=== PATIENT | male | born 1930 | race Caucasian/White ===

== ENCOUNTER → 2016-11-12 | Outpatient (CLI) | payer BC ==
[~2016-11-12] MED LIST: ALBUAER2 INH; ATOR10TA82 PO; AUG0.05O4 TD; CARB1TAB94 PO; CETI10CH PO; CLON0.5T20 PO; CLOT1CRE47 TD; ENTA200T PO; FLUT0.0529 NAE; LEVO100T PO; LISI-461 PO; MELO15TA4; MULT-506 PO; MULTCAP94 PO; RASA1TAB PO
[2016-11-12 10:14] LABS: ALT/SGPT 15 U/L (12-78); AST/SGOT 19 U/L (15-37); BLOOD UREA NITROGEN 27 mg/dl (7-18); BUN/CREATININE RATIO 30.4 (10-20); CALCIUM 8.5 mg/dl (8.5-10.1); CARBON DIOXIDE 29 mmol/L (21-32); CHLORIDE 109 mmol/L (98-107); CHOLESTEROL 155 mg/dl (0-200); CREATININE 0.88 mg/dl (0.60-1.40); GLUCOSE 97 mg/dl (70-99); POTASSIUM 4.4 mmol/L (3.5-5.1); SODIUM 144 mmol/L (136-145)
[2016-11-12 10:26] LABS: ALB/GLOB RATIO 1.2 (0.9-2); ALKALINE PHOSPHATASE 62 U/L (45-117); CHOLESTEROL/HDL RATIO 3.2; HDL CHOLESTEROL 48 mg/dl; LDL CHOLESTEROL CALCULATED 86 mg/dl; TRIGLYCERIDES 105 mg/dl (0-150); VERY LOW DENSITY LIPOPROT CALC 21 mg/dl
== END | disposition home or self-care (01) ==
LOC: C.LAB1850 08:25
PROVIDERS: ATTEND Internal Medicine
DX: I10 Essential (primary) hypertension (principal); E78.00 Pure hypercholesterolemia, unspecified; E03.9 Hypothyroidism, unspecified

== ENCOUNTER → 2017-01-20 | Outpatient (CLI) | payer BC ==
[~2017-01-20] MED LIST changes: +OPTIRAY 320 IV PRN
--- NOTE | 2017-01-20 13:04 | DIAGNOSTIC IMAGING REPORT ---
LEFT SHOULDER CT WITH INTRAVENOUS CONTRAST CT DOSE: 631.45 mGy.cm HISTORY: Left shoulder pain. TECHNIQUE: Multiaxial CT images of the left shoulder were performed and reformatted in the sagittal and coronal plane following the the use of intravenous contrast. COMPARISON: None. FINDINGS: No fracture or dislocation within the left shoulder. The left clavicle is intact. Visualized left lung is clear. No left axillary lymphadenopathy. Small intramuscular, within the biceps. No soft tissue fluid collections. No radiopaque foreign bodies. Evaluation of the rotator cuff is near nondiagnostic due to the CT technique. However, no definite evidence for full-thickness rotator cuff tear. Mild cartilage space narrowing at the glenohumeral joint consistent with osteoarthritis. IMPRESSION: 1. No fracture or dislocation within the left shoulder. 2. Evaluation of the rotator cuff is near done diagnostic to the CT technique. However, no definite evidence for full-thickness rotator cuff tear. 3. Mild osteoarthritis at the glenohumeral joint. Electronically signed by: Maxi Diez M.D. 01/20/2017 1:03 PM Dictated Date/Time: 01/20/2017 12:58 PM
== END | disposition home or self-care (01) ==
LOC: C.CTS 12:06
DX: M25.512 Pain in left shoulder (principal); M19.012 Primary osteoarthritis, left shoulder

== ENCOUNTER → 2017-11-23 | Outpatient (CLI) | payer BC ==
[~2017-11-23] MED LIST changes: +CARB25TA14 PO; +CLOTCRE5 TOP; +FLUT0.15 INTNAS; +IBUP-103 PO; +MELO-83; -MELO15TA4; -OPTIRAY 320 IV PRN; +SENNTAB23 PO; +TAMS0.4C38 PO; +VNTHFA/IN INH
[2017-11-23 10:17] LABS: BASO % 0.4 %; BASO ABS # 0.02 K/uL (0-0.2); EOS % 3.1 %; EOS ABS # 0.17 K/uL (0-0.5); HEMATOCRIT 45.9 % (42-52); HEMOGLOBIN 15.5 g/dL (14.0-18.0); LYMPH % 30.3 %; LYMPH ABS # 1.69 K/uL (1.2-3.4); MEAN CELL VOLUME 93.5 fL (80-100); MEAN CORPUSCULAR HEMOGLOBIN 31.6 pg (25-34); MEAN CORPUSCULAR HGB CONC 33.8 g/dl (32-36); MEAN PLATELET VOLUME 10.8 fL (7.4-10.4); MONO % 7.4 %; MONO ABS # 0.41 K/uL (0.11-0.59); NEUT % 58.8 %; NEUT ABS # 3.28 K/uL (1.4-6.5); PLATELET COUNT 166 K/uL (130-400); RED CELL DISTRIBUTION WIDTH CV 12.8 % (11.5-14.5); WHITE BLOOD COUNT 5.57 K/uL (4.8-10.8)
[2017-11-23 10:55] LABS: ALBUMIN 3.6 gm/dl (3.4-5.0); ALT/SGPT 22 U/L (12-78); AST/SGOT 21 U/L (15-37); BLOOD UREA NITROGEN 27 mg/dl (7-18); CALCIUM 8.4 mg/dl (8.5-10.1); CARBON DIOXIDE 28 mmol/L (21-32); CHOLESTEROL 154 mg/dl (0-200); GLUCOSE 92 mg/dl (70-99); SODIUM 140 mmol/L (136-145)
[2017-11-23 11:06] LABS: ALKALINE PHOSPHATASE 50 U/L (45-117); LDL CHOLESTEROL CALCULATED 79 mg/dl; TOTAL PROTEIN 6.8 gm/dl (6.4-8.2)
== END | disposition home or self-care (01) ==
LOC: C.LAB1850 09:29
PROVIDERS: ATTEND Internal Medicine
DX: E78.00 Pure hypercholesterolemia, unspecified (principal); E03.9 Hypothyroidism, unspecified; G20 Parkinson's disease; I10 Essential (primary) hypertension

== ENCOUNTER → 2017-12-01 | Outpatient (CLI) | payer BC ==
[~2017-12-01] MED LIST changes: -ALBUAER2 INH; -AUG0.05O4 TD; -CARB1TAB94 PO; -CLOT1CRE47 TD; -FLUT0.0529 NAE; -MELO-83
--- NOTE | 2017-12-01 08:03 | DIAGNOSTIC IMAGING REPORT ---
(CHEST) THORAX WITHOUT CT DOSE: 638.48 mGy.cm HISTORY: Preoperative PRE OP TESTING TECHNIQUE: Multiaxial CT images of the chest were performed without contrast. A dose lowering technique was utilized adhering to the principles of ALARA. COMPARISON: Chest 11/29/2017 FINDINGS: Lungs in general are clear bilaterally. There is mild peripheral pleural reactive change right base with a mild fibrocalcific change. These findings appear to be chronic and most likely postinflammatory. No significant parenchymal nodularity or acute infiltrates appreciated. He had a mediastinal regions show no significant evans pathology. Note is made of several small gallstones as well as a cyst upper pole right kidney. IMPRESSION: Chronic/benign pleural reactive change right lung base accounting for the chest film findings. No acute process. The above report was generated using voice recognition software. It may contain grammatical, syntax or spelling errors. Electronically signed by: Mickey Fisher M.D. 12/01/2017 8:01 AM Dictated Date/Time: 12/01/2017 7:57 AM
== END | disposition home or self-care (01) ==
LOC: C.CTS 07:43
DX: Z01.818 Encounter for other preprocedural examination (principal)

== ENCOUNTER 2017-12-09 10:13 | Inpatient (IN) | payer BC, OTHER ==
[2017-11-29 10:44] VITALS: Ht 177.8 cm; Wt 103.6 kg
--- NOTE | 2017-11-29 11:29 | PAT Medication Instructions ---
Service Date Nov 29, 2017. Current Home Medication List Albuterol Hfa (Ventolin Hfa), 2 PUFFS INH Q6H PRN for PRN Atorvastatin (Lipitor), 1 TAB PO QPM Carbidopa (Carbidopa), 2 MG PO TID Carbidopa/Levodopa (Sinemet 25MG/250MG), 1 TAB PO QID Cetirizine Hcl (Cetirizine Hcl), 1 TAB PO QPM Clonazepam (Clonazepam Odt), 0.5 MG PO HS Clotrimazole (Topical) (Clotrimazole Anti-Fungal), 1 DOSE TOP PRN Entacapone (Comtan), 200 MG PO QID Fluticasone Propionate (Nasal) (Flonase Allergy Relief), 2 SPRAYS INTNAS QAM Ibuprofen Tab (Advil), 600 MG PO BID Levothyroxine Sodium (Synthroid), 1 TAB PO QAM Lisinopril (Lisinopril), 1 TAB PO QAM Multiple Vitamins W/ Minerals (Ocuvite Adult 50+), 1 CAP PO NOON Multivitamin (Multivitamin), 1 TAB PO QAM Rasagiline Mesylate (Azilect), 1 MG PO QAM Sennosides-Docusate Sodium (Stool Softener), 1 TAB PO NOON Tamsulosin Hcl (Flomax), 0.8 MG PO QPM Medication Instructions For Your Scheduled Surgery - Hold the following medications 2 weeks prior to surgery: Rasagiline Mesylate (Azilect), 1 MG PO QAM Ibuprofen Tab (Advil), 600 MG PO BID (per surgeon) - Hold the following medications 24 hours prior to surgery: Clotrimazole (Topical) (Clotrimazole Anti-Fungal), 1 DOSE TOP PRN - Hold the following medications the morning of surgery: Lisinopril (Lisinopril), 1 TAB PO QAM Multiple Vitamins W/ Minerals (Ocuvite Adult 50+), 1 CAP PO NOON Multivitamin (Multivitamin), 1 TAB PO QAM - Take the following medications the morning of surgery with a sip of water: Albuterol Hfa (Ventolin Hfa), 2 PUFFS INH Q6H PRN for PRN (if needed) Carbidopa (Carbidopa), 2 MG PO TID Carbidopa/Levodopa (Sinemet 25MG/250MG), 1 TAB PO QID Entacapone (Comtan), 200 MG PO QID Fluticasone Propionate (Nasal) (Flonase Allergy Relief), 2 SPRAYS INTNAS QAM Levothyroxine Sodium (Synthroid), 1 TAB PO QAM - Take the following medications as scheduled the night before surgery: Albuterol Hfa (Ventolin Hfa), 2 PUFFS INH Q6H PRN for PRN (if needed) Atorvastatin (Lipitor), 1 TAB PO QPM Carbidopa (Carbidopa), 2 MG PO TID Carbidopa/Levodopa (Sinemet 25MG/250MG), 1 TAB PO QID Cetirizine Hcl (Cetirizine Hcl), 1 TAB PO QPM Clonazepam (Clonazepam Odt), 0.5 MG PO HS Entacapone (Comtan), 200 MG PO QID Sennosides-Docusate Sodium (Stool Softener), 1 TAB PO NOON Tamsulosin Hcl (Flomax), 0.8 MG PO QPM If you have any questions please call us at [phone] or [phone] or [phone]
[2017-11-29 13:00] LABS: HEMOGLOBIN A1C 5.3 % (4.5-5.6)
[2017-11-29 13:02] LABS: PTT PATIENT 29.6 SECONDS (21.0-31.0)
--- NOTE | 2017-11-29 13:20 | DIAGNOSTIC IMAGING REPORT ---
TWO VIEW CHEST CLINICAL HISTORY: Preoperative examination. FINDINGS: PA and lateral chest radiographs are compared to study dated 06/06/2013. The heart is enlarged and there is atherosclerotic calcification of the thoracic aorta. The pulmonary vasculature is noncongested. There is elevation right hemidiaphragm. There are atelectasis versus scarring is present lower lobes. There is asymmetric density identified at the right apex. There is no pneumothorax. The skeletal structures are osteopenic. Degenerative change is noted in the thoracic spine and shoulders. IMPRESSION: 1. Cardiomegaly with no active disease in the chest. 2. There is asymmetric density present at the right apex. This may be related to osseous structures; however, a CT scan of the chest is recommended for further assessment and to exclude mass lesion. Electronically signed by: Keith Quiñones M.D. 11/29/2017 1:19 PM Dictated Date/Time: 11/29/2017 12:58 PM
--- NOTE | 2017-12-08 12:10 | HISTORY & PHYSICAL EXAMINATION ---
DATE OF ADMISSION: 12/09/2017 CHIEF COMPLAINT: Left knee pain. HISTORY OF PRESENT ILLNESS: The patient is an 87-year-old gentleman with known left knee osteoarthritis. He has had previous conservative care including corticosteroid injections and more recently a series of viscosupplementation injections. These recent injections did not help him at all. He had a previous right total knee arthroplasty which has done well. Due to ongoing pain and disability, he now desires to proceed with left total knee arthroplasty. PAST MEDICAL HISTORY: Hypertension, hypercholesterolemia, Parkinson's disease, hypothyroidism, osteoarthritis, skin cancer, enlarged prostate. PAST SURGICAL HISTORY: Right knee replacement as above, ear surgery, appendectomy, hernia repair, Mohs surgery. MEDICATIONS: Lipitor 10 mg daily, Ginger 180 mg daily, Flonase 1 spray each nostril daily, lisinopril 10 mg daily, carbidopa-levodopa 25-100 3 times daily, clobetasol topical cream 0.05% applied 2 times daily as needed, Levoxyl 50 mcg daily, Ventolin inhaler 2 puffs q. 4-6 hours p.r.n., multivitamin daily, Azilect 1 mg daily, clonazepam 0.5 mg daily, Meloxicam 15 mg daily. ALLERGIES: LATEX, POLYMYXIN B, BACITRACIN, SULFA, NEOMYCIN, PRESERVATIVES, AND EAR AND EYEDROPS. SOCIAL HISTORY AND REVIEW OF SYSTEMS: Noncontributory. PHYSICAL EXAMINATION: GENERAL: Well-nourished, well-developed elderly male who appears his stated age. HEENT: Normocephalic, atraumatic, extraocular movements intact, oropharynx pink and moist. NECK: Supple without adenopathy. LUNGS: Clear to auscultation bilaterally. HEART: Regular rate and rhythm. ABDOMEN: Soft, nontender, nondistended. EXTREMITIES: He demonstrates a pill rolling tremor in the upper extremity consistent with his Parkinson's disease. The left knee has a varus alignment. His range of motion is from 0-120 degrees. He complains primarily of medial compartment pain. X-RAYS: X-rays were reviewed. He has a varus aligned knee. He has [id number] arthritis of the medial compartment with complete loss of the joint space. There is medial osteophytes. He has osteophytes about the patellofemoral joint as well. ASSESSMENT: Left knee degenerative joint disease. PLAN: Risks versus benefits were discussed, consent was obtained. The patient's primary care physician is Dr. Barnard. Will proceed with left total knee arthroplasty as indicated.
[~2017-12-09] VITALS: Ht 177.8 cm; Wt 103.6 kg
[2017-12-09] VITALS (9 sets, daily range): BP systolic 114–154; BP diastolic 61–87; PULSE 78–107; TEMP 36.6–37.2; O2SAT 93–96
--- NOTE | 2017-12-09 07:14 | History & Physical Bridge Note ---
H&P Re-Evaluation Bridge Note: I have examined the patient, reviewed the History & Physical and in the interval since the performance of the History & Physical I have noted the following changes of clinical significance: No changes noted
[~2017-12-09 10:13] MED LIST changes: +ACETAMINOPHEN 500 MG TAB PO SCH; +CEFAZOLIN 2000MG IV PUSH 15 ML IV SCH; +CeleBREX 200 MG CAP PO SCH; +DEXAMETHASONE 4 MG TAB PO SCH; +FAMOTIDINE 20 MG TAB PO SCH; +GABAPENTIN 300 MG CAP PO SCH; +LACTATED RINGER'S 1000ML 1,000 ML IV SCH; +LACTATED RINGER'S 1000ML 500 ML IV SCH; +METOCLOPRAMIDE HCL 10 MG TAB PO SCH; +ROPIVACAINE 5MG/ML 30 ML 150 MG, BUPIVACAINE 0.5% MPF INJ 30 ML, EpINEphrine HCL INJ 0.... INFIL SCH
[2017-12-09] MEDS ORDERED: MIDAZOLAM HCL 1 MG/ML 2ML VIAL ONE (10:24)
[2017-12-09] MEDS ORDERED: FENTANYL CITRATE INJ 50 MCG/1 ML 2 ML VIAL ONE (10:24)
[2017-12-09] MEDS ORDERED: ROPIVACAINE 0.5% 5 MG/ML 30 ML VIAL ONE (11:50)
[2017-12-09] MEDS ORDERED: BUPIVACAINE 0.5 % 5 MG/1 ML PF 10ML VIAL ONE (11:50)
[2017-12-09] MEDS ORDERED: EpINEphrine INJ 1MG/ML AMP 1 MG/ML AMP ONE (11:51)
[2017-12-09] MEDS ORDERED: ORTHO JOINT ANESTHETIC ONE (12:00)
[2017-12-09] MEDS ORDERED: POVIDONE-IODINE OP SOLN 30 ML BTL ONE (12:00)
[2017-12-09] MEDS ORDERED: BACITRACIN 50000 UNIT VIAL ONE (12:00)
[2017-12-09] MEDS ORDERED: LABETALOL HCL IV 5 MG/ML 20ML IV PRN (12:15)
[2017-12-09] MEDS ORDERED: EpHEDrine SULFATE INJ 50 MG/ML AMP IV PRN (12:15)
[2017-12-09] MEDS ORDERED: MEPERIDINE HCL 25 MG/ML CARP IV PRN (12:15)
[2017-12-09] MEDS ORDERED: FENTANYL CITRATE INJ 50 MCG/1 ML 2 ML VIAL IV PRN (12:15)
[2017-12-09] MEDS ORDERED: PHENYLEPHRINE 100MCG/ML 5ML SYR IV PRN (12:15)
[2017-12-09] MEDS ORDERED: ATROPINE SULFATE 0.1 MG/ML 5ML SYR IV PRN (12:15)
[2017-12-09] MEDS ORDERED: ONDANSETRON INJ 2 MG/ML 2 ML VIAL IV PRN ×2 (12:15→14:15)
[2017-12-09] MEDS ORDERED: HYDROmorphone INJ 2 MG/ML SYR/VIAL IV PRN (12:15)
[2017-12-09] MEDS ORDERED: FLUMAZENIL 0.1 MG/1 ML 10 ML VIAL IV PRN (12:15)
[2017-12-09] MEDS ORDERED: NALOXONE HCL 0.4 MG/1 ML VIAL/CARP IV PRN (12:15)
[2017-12-09] MEDS ORDERED: BISACODYL 10 MG SUPP PR PRN (14:15)
[2017-12-09] MEDS ORDERED: MAGNESIUM HYDROXIDE SUSP 30 ML UDC PO PRN (14:15)
[2017-12-09] MEDS ORDERED: MoRPHine SULFATE 4 MG/ML 1 ML CARP\\VIAL IV PRN (14:15)
[2017-12-09] MEDS ORDERED: ALUMINUM/MAGNESIUM/SIMETH (MAALOX MAX) 30 ML UDC PO PRN (14:15)
[2017-12-09] MEDS ORDERED: ALBUTEROL HFA 8 GM INHALER INH PRN (14:15)
--- NOTE | 2017-12-09 14:42 | DIAGNOSTIC IMAGING REPORT ---
L KNEE 2 VIEWS ROUTINE CLINICAL HISTORY: Osteoarthritis. Postoperative study. COMPARISON: None. DISCUSSION: There are postsurgical changes of a total left knee arthroplasty and patellar resurfacing. The femoral tibial components appear well seated. Overlying skin aida and surgical drains are evident. There is air within the soft tissues consistent with recent surgery. There is asymmetry in the medial and lateral joint compartment prosthetic distances. IMPRESSION: Postsurgical changes of a total left knee arthroplasty. Electronically signed by: Tristian Cortés M.D. 12/09/2017 2:41 PM Dictated Date/Time: 12/09/2017 2:38 PM
[2017-12-09] MEDS: D5W AND 1/2NSS + 20MEQ KCL 1,000 ML IV SCH (16:53)
--- NOTE | 2017-12-09 16:54 | Anesthesiology Progress Note ---
Anesthesia Post Op Note Date & Time December 09, 2017 at 16:54 Vital Signs Pain Intensity: 0 Vital Signs Past 12 Hours Date Time Temp Pulse Resp B/P (MAP) Pulse Ox O2 Delivery O2 Flow Rate FiO2 12/09/17 16:25 36.7 85 17 152/81 (104) 95 Nasal Cannula 2.0 12/09/17 15:55 95 Nasal Cannula 2.0 12/09/17 15:55 95 Nasal Cannula 2.0 12/09/17 15:52 37.1 88 16 134/71 (92) Nasal Cannula 2.0 12/09/17 15:40 37.2 89 18 129/73 94 Nasal Cannula 2 12/09/17 15:30 37.2 91 16 122/73 94 Nasal Cannula 2 12/09/17 15:20 37.2 92 16 126/76 94 Nasal Cannula 2 12/09/17 15:10 37.2 89 20 138/80 95 Nasal Cannula 2 12/09/17 15:00 89 20 132/69 94 Nasal Cannula 2 12/09/17 14:50 90 14 137/69 95 Nasal Cannula 2 12/09/17 14:40 89 14 130/69 96 Nasal Cannula 2 12/09/17 14:30 1 14 131/78 97 Nasal Cannula 2 12/09/17 14:20 90 14 134/73 98 Nasal Cannula 2 12/09/17 14:14 36.9 90 10 130/80 96 Oxymask 10 12/09/17 11:06 36.8 87 20 117/73 96 Room Air Notes Mental Status: alert / awake / arousable, participated in evaluation Pt Amnestic to Procedure: Yes Nausea / Vomiting: adequately controlled Pain: adequately controlled Airway Patency, RR, SpO2: stable & adequate BP & HR: stable & adequate Hydration State: stable & adequate Neuraxial Anesthesia: was administered, sensory block is resolving Anesthetic Complications: no major complications apparent
[2017-12-09] MEDS: TRANEXAMIC ACID INJ 1,000 MG x 2 Bags IV SCH ×4 (17:01→17:06)
[2017-12-09] MEDS: ENTACAPONE 200 MG TAB PO SCH ×2 (17:03→20:46)
[2017-12-09] MEDS: CARBIDOPA/LEVODOPA 25-250 1 EA TAB PO SCH ×2 (17:03→20:45)
[2017-12-09] MEDS: FERROUS GLUCONATE 324 MG TAB PO SCH (17:29)
[2017-12-09] MEDS: CEFAZOLIN IV 2,000 MG in SYRINGE 0 ML IV SCH (19:38)
[2017-12-09] MEDS: OXYCODONE HCL IR 5 MG TAB (IMMEDIATE RELEASE) PO PRN (19:39)
[2017-12-09] MEDS: DOCUSATE SODIUM 100 MG CAP PO SCH (20:45)
[2017-12-09] MEDS: SENNA 8.6 MG TAB PO SCH (20:45)
[2017-12-09] MEDS: ATORVASTATIN 10 MG TAB PO SCH (20:46)
[2017-12-09] MEDS: TAMSULOSIN HCL 0.4 MG CAP PO SCH (20:46)
[2017-12-09] MEDS: CETIRIZINE HCL 10 MG TAB PO SCH (20:46)
[2017-12-09] MEDS: CLONAZEPAM 0.5 MG TAB PO SCH (20:46)
[2017-12-09] MEDS: ASPIRIN 81 MG ECTAB PO SCH (20:47)
[2017-12-09] MEDS: ACETAMINOPHEN 500 MG TAB PO SCH (21:31)
[2017-12-10] MEDS: OXYCODONE HCL IR 5 MG TAB (IMMEDIATE RELEASE) PO PRN ×3 (00:18→16:14)
[2017-12-10] MEDS: D5W AND 1/2NSS + 20MEQ KCL 1,000 ML IV SCH ×2 (02:12→12:07)
[2017-12-10 03:12] VITALS: BP 122/65; PULSE 76; TEMP 36.6; O2SAT 95
[2017-12-10] MEDS: CEFAZOLIN IV 2,000 MG in SYRINGE 0 ML IV SCH (03:21)
[2017-12-10] MEDS: TRAMADOL HCL 50 MG TAB PO PRN ×4 (03:21→15:16)
[2017-12-10] MEDS: ACETAMINOPHEN 500 MG TAB PO SCH ×3 (05:45→22:00)
[2017-12-10] MEDS: LEVOTHYROXINE 100 MCG TAB PO SCH (05:45)
[2017-12-10 06:28] LABS: HEMATOCRIT 38.2 % (42-52); HEMOGLOBIN 12.9 g/dL (14.0-18.0); MEAN CORPUSCULAR HEMOGLOBIN 31.1 pg (25-34); MEAN CORPUSCULAR HGB CONC 33.8 g/dl (32-36); MEAN PLATELET VOLUME 10.7 fL (7.4-10.4); PLATELET COUNT 144 K/uL (130-400); RED CELL DISTRIBUTION WIDTH CV 12.6 % (11.5-14.5); RED CELL DISTRIBUTION WIDTH SD 42.7 fL (36.4-46.3); WHITE BLOOD COUNT 14.96 K/uL (4.8-10.8)
[2017-12-10 07:09] LABS: CALCIUM 7.8 mg/dl (8.5-10.1); CREATININE 1.02 mg/dl (0.60-1.40); POTASSIUM 4.8 mmol/L (3.5-5.1)
[2017-12-10 07:19] VITALS: BP 124/74; PULSE 77; TEMP 36.5; O2SAT 98
--- NOTE | 2017-12-10 07:41 | Anesthesiology Progress Note ---
Anesthesia Post Op Note Date & Time December 10, 2017 at 07:40 Vital Signs Pain Intensity: 6.0 Vital Signs Past 12 Hours Date Time Temp Pulse Resp B/P (MAP) Pulse Ox O2 Delivery O2 Flow Rate FiO2 12/10/17 07:19 36.5 77 16 124/74 (91) 98 2.0 12/10/17 03:12 36.6 76 16 122/65 (84) 95 Nasal Cannula 2.0 12/10/17 00:00 Nasal Cannula 2.0 12/09/17 22:54 36.6 78 16 114/64 (81) 94 Nasal Cannula 2.0 Notes Mental Status: alert / awake / arousable, participated in evaluation Pt Amnestic to Procedure: Yes Nausea / Vomiting: adequately controlled Pain: adequately controlled Airway Patency, RR, SpO2: stable & adequate BP & HR: stable & adequate Hydration State: stable & adequate Neuraxial Anesthesia: sensory block resolved Anesthetic Complications: no major complications apparent
--- NOTE | 2017-12-10 07:43 | Orthopedic Progress Note ---
Orthopedic Progress Note Date of Service December 10, 2017. Subjective Post OP Day: 1 Reports: feeling well Objective N/V intact, dressing C/D/I (Hemovac in place), toes mobile Date Time Temp Pulse Resp B/P (MAP) Pulse Ox O2 Delivery O2 Flow Rate FiO2 12/10/17 07:19 36.5 77 16 124/74 (91) 98 2.0 12/10/17 03:12 36.6 76 16 122/65 (84) 95 Nasal Cannula 2.0 12/10/17 00:00 Nasal Cannula 2.0 12/09/17 22:54 36.6 78 16 114/64 (81) 94 Nasal Cannula 2.0 12/09/17 19:10 37.2 91 17 148/61 (90) 94 Room Air 12/09/17 17:50 37.2 107 16 154/87 (109) 93 Nasal Cannula 2.0 12/09/17 17:20 95 Nasal Cannula 2.0 12/09/17 17:00 37.1 88 16 141/80 (100) 95 Nasal Cannula 2.0 12/09/17 16:25 36.7 85 17 152/81 (104) 95 Nasal Cannula 2.0 12/09/17 15:55 95 Nasal Cannula 2.0 12/09/17 15:55 95 Nasal Cannula 2.0 12/09/17 15:52 37.1 88 16 134/71 (92) Nasal Cannula 2.0 12/09/17 15:40 37.2 89 18 129/73 94 Nasal Cannula 2 12/09/17 15:30 37.2 91 16 122/73 94 Nasal Cannula 2 12/09/17 15:20 37.2 92 16 126/76 94 Nasal Cannula 2 12/09/17 15:10 37.2 89 20 138/80 95 Nasal Cannula 2 12/09/17 15:00 89 20 132/69 94 Nasal Cannula 2 12/09/17 14:50 90 14 137/69 95 Nasal Cannula 2 12/09/17 14:40 89 14 130/69 96 Nasal Cannula 2 12/09/17 14:30 1 14 131/78 97 Nasal Cannula 2 12/09/17 14:20 90 14 134/73 98 Nasal Cannula 2 12/09/17 14:14 36.9 90 10 130/80 96 Oxymask 10 12/09/17 11:06 36.8 87 20 117/73 96 Room Air Laboratory Results 24 Hours: Test 12/10/17 05:34 Hematocrit 38.2 % Hemoglobin 12.9 g/dL Assessment & Plan Assessment: 87 yo male stable POD #1 s/p left TKA Plan: 1. Med management 2. DVT prophylaxis- ASA, SCDs 3. PT/OT 4. D/C planning- home w/ HH
--- NOTE | 2017-12-10 07:44 | Discharge Instructions ---
Discharge Instructions Date of Service December 10, 2017. Admission Reason for Admission: Left Knee Osteoarthritis Discharge Discharge Diagnosis / Problem: Left knee arthritis Discharge Goals Goal(s): Decrease discomfort, Improve function Activity Recommendations Activity Limitations: as noted below Weightbearing Status: Left weightbearing (as tolerated) . Instructions / Follow-Up Instructions / Follow-Up ACTIVITY RECOMMENDATIONS: SELF CARE INSTRUCTIONS AFTER TOTAL KNEE REPLACEMENT A. You may need to continue a physical therapy program after discharge from the hospital. There are several options available to you. Your doctor will assist you in selecting the best one for you. 1. An out-patient facility 2 to 3 times a week for therapy or home therapy. 2. Continue working on all exercises taught to you in the hospital. Your goals should be to increase bending of your knee to 90 degrees and beyond and to fully straighten your knee. B. You may progress at your own pace from walking with a walker or crutches to a cane; then to no assistive devices. C. Make walking a part of your daily routine. Be up as much as comfortable with rest periods throughout the day. Rest with leg elevation is very important. Use the ice wrap frequently for the first 3-4 weeks. D. There are no restrictions on activities. You may ride in a car, shop, participate in model and mold maker plaster and all social activities. E. Wear the long elastic stockings (RODDY hose) 20 hours a day for 2 weeks after surgery. They can be removed several times a day for laundering and for a bath. F. You may shower, no tub baths until cleared by your doctor. SPECIAL CARE INSTRUCTIONS: VERY IMPORTANT TO READ AND REVIEW A. There are a few signs you need to watch for after you are home. Call [facility] if you notice any of the followin. Increased severe knee pain. Some pain is expected especially when you exercise. 2. Increased swelling in your leg or knee; pain or swelling of the calf muscle in either lower leg. 3. Any fluid drainage from the incision. 4. Shortness of breath or chest pain. B. Please call [facility] at if you have any concerns or questions about your operation or recovery. The doctor or his nurse will return your call promptly. C. You must take antibiotics before dental work, bladder, bowel or other surgery. Your doctor will provide you with a permanent care to carry describing this precaution. IMPORTANT: * REMEMBER TO TAKE ASPIRIN, 81 MG, TWICE DAILY FOR 4 WEEKS UNLESS OTHERWISE DIRECTED. THIS IS YOUR BLOOD THINNER. * HIGH RISK PATIENTS MAY BE PRESCRIBED A STRONGER BLOOD THINNER. THIS WILL BE PROVIDED AT DISCHARGE. * CALL IF INCREASED PAIN, REDNESS, DRAINAGE OR FEVER GREATER THAT 101. * WEAR RODDY HOSE 20 HOURS PER DAY FOR 2 WEEKS. FOLLOW UP VISIT: If appointment is not already scheduled: Please call [facility] to make a follow-up appointment for 2 weeks after your surgery at . Current Hospital Diet Patient's current hospital diet: AHA Diet (Heart Healthy) Discharge Diet Recommended Diet: AHA Diet (Heart Healthy) Procedures Procedures Performed: Left total knee arthroplasty Pending Studies Studies pending at discharge: no Laboratory Results Hemoglobin A1c Test 11/29/17 11:41 Range/Units Estimated Average Glucose 105 mg/dl Hemoglobin A1c 5.3 4.5-5.6 % Lipid Panel Test 11/23/17 09:31 Range/Units Triglycerides Level 141 0-150 mg/dl Cholesterol Level 154 0-200 mg/dl HDL Cholesterol 47 mg/dl Cholesterol/HDL Ratio 3.3 LDL Cholesterol, Calculated 79 mg/dl Medical Emergencies . Who to Call and When: Medical Emergencies: If at any time you feel your situation is an emergency, please call 911 immediately. . Non-Emergent Contact Non-Emergency issues call your: Surgeon Call Non-Emergent contact if: temperature is above 101.5, your pain is not controlled, wound has increased drainage, wound has increased redness . "Provider Documentation" section prepared by Jose Benjamin PA-C. . [place] Drug Monitoring Program Search Results: patient reviewed within database, no issues identified
[2017-12-10] MEDS: ENTACAPONE 200 MG TAB PO SCH ×4 (08:06→20:33)
[2017-12-10] MEDS: CARBIDOPA/LEVODOPA 25-250 1 EA TAB PO SCH ×4 (08:08→20:33)
[2017-12-10] MEDS: FLUTICASONE PROPIONATE NA SPR 16 GM BTL SCH (08:45)
[2017-12-10] MEDS: FERROUS GLUCONATE 324 MG TAB PO SCH ×3 (08:45→17:26)
[2017-12-10] MEDS: ASPIRIN 81 MG ECTAB PO SCH ×2 (08:46→20:33)
[2017-12-10] MEDS: DOCUSATE SODIUM 100 MG CAP PO SCH ×2 (08:46→20:32)
[2017-12-10] MEDS: LISINOPRIL 10 MG TAB PO SCH (08:47)
[2017-12-10] MEDS ORDERED: MULTIVITAMIN TAB PO SCH (09:00)
[2017-12-10 10:57] VITALS: BP 146/76; PULSE 81; TEMP 36.5; O2SAT 92
[2017-12-10] MEDS: CEROVITE ADV FORMULA TAB PO SCH (12:08)
[2017-12-10] MEDS: RASAGILINE MESYLATE 1 MG TAB PO SCH (12:09)
[2017-12-10 15:40] VITALS: BP 135/69; PULSE 83; TEMP 37.1; O2SAT 92
[2017-12-10] MEDS: CETIRIZINE HCL 10 MG TAB PO SCH (20:32)
[2017-12-10] MEDS: ATORVASTATIN 10 MG TAB PO SCH (20:32)
[2017-12-10] MEDS: SENNA 8.6 MG TAB PO SCH (20:33)
[2017-12-10] MEDS: TAMSULOSIN HCL 0.4 MG CAP PO SCH (20:33)
[2017-12-10] MEDS: CLONAZEPAM 0.5 MG TAB PO SCH (20:33)
[2017-12-10 22:42] VITALS: BP 104/58; PULSE 107; TEMP 36.7; O2SAT 92
[2017-12-11] MEDS: OXYCODONE HCL IR 5 MG TAB (IMMEDIATE RELEASE) PO PRN ×2 (04:28→08:32)
[2017-12-11] MEDS: LEVOTHYROXINE 100 MCG TAB PO SCH (05:53)
[2017-12-11] MEDS: ACETAMINOPHEN 500 MG TAB PO SCH (05:53)
[2017-12-11 06:49] VITALS: BP 111/60; PULSE 116; TEMP 37.9; O2SAT 91
[2017-12-11 06:50] VITALS: TEMP 37.1
[2017-12-11] MEDS: LISINOPRIL 10 MG TAB PO SCH (07:52)
[2017-12-11] MEDS: ASPIRIN 81 MG ECTAB PO SCH (07:52)
[2017-12-11] MEDS: FERROUS GLUCONATE 324 MG TAB PO SCH (07:52)
[2017-12-11] MEDS: FLUTICASONE PROPIONATE NA SPR 16 GM BTL SCH (07:52)
[2017-12-11] MEDS: RASAGILINE MESYLATE 1 MG TAB PO SCH (07:52)
[2017-12-11] MEDS: CARBIDOPA/LEVODOPA 25-250 1 EA TAB PO SCH (07:52)
[2017-12-11] MEDS: DOCUSATE SODIUM 100 MG CAP PO SCH (07:52)
[2017-12-11] MEDS: ENTACAPONE 200 MG TAB PO SCH (07:52)
[2017-12-11] MEDS: CEROVITE ADV FORMULA TAB PO SCH (07:52)
--- NOTE | 2017-12-11 09:03 | Orthopedic Progress Note ---
Orthopedic Progress Note Date of Service December 11, 2017. Subjective Post OP Day: 2 Reports: feeling well Objective calves soft nontender, N/V intact, dressing C/D/I, toes mobile Date Time Temp Pulse Resp B/P (MAP) Pulse Ox O2 Delivery O2 Flow Rate FiO2 12/11/17 08:58 Room Air 12/11/17 06:50 37.1 12/11/17 06:49 37.9 116 16 111/60 (77) 91 Room Air 12/11/17 00:45 Room Air 12/10/17 22:42 36.7 107 16 104/58 (73) 92 Room Air 12/10/17 15:40 37.1 83 18 135/69 (91) 92 Room Air 12/10/17 15:26 Room Air 12/10/17 10:57 36.5 81 16 146/76 (99) 92 Room Air Assessment & Plan Assessment: 87 yo male stable POD #2 s/p left TKA Plan: 1. Med management 2. DVT prophylaxis- ASA, SCDs 3. PT/OT 4. D/C planning- home w/ HH
[2017-12-11] MEDS ORDERED: ULT50X PO (09:05)
[2017-12-11] MEDS ORDERED: ASPI-320 PO (09:05)
[2017-12-11] MEDS ORDERED: ACET-24 PO (09:05)
[2017-12-11] MEDS ORDERED: RXC5 PO (09:05)
[2017-12-11 09:43] VITALS: BP 111/60; PULSE 116; TEMP 37.1; O2SAT 91
--- NOTE | 2017-12-14 16:28 | DISCHARGE SUMMARY ---
DISCHARGE DIAGNOSIS: Degenerative joint disease, left knee. SECONDARY DIAGNOSES: Hypertension, hypercholesterolemia, Parkinson's disease, hypothyroidism, osteoarthritis, skin carcinoma, enlarged prostate. CONSULTS: None. COMPLICATIONS: None. PROCEDURES: Left total knee arthroplasty performed by Dr. Castro on 12/09/2017. BRIEF HISTORY: As dictated in history and physical. HOSPITAL SUMMARY: The patient was admitted on the above-noted date and had the above-noted surgery performed which he tolerated well. On the first postoperative day he was feeling well. Neurovascularly intact. Dressings clean, dry and intact. Toes are mobile. Vital signs were stable. He was afebrile. Hemoglobin was 12.9. Patient was started on physical therapy protocol and continued on DVT prophylaxis and pain management. By his second postoperative day, he was feeling well. Calves were soft, nontender, neurovascularly intact. Toes were mobile. Dressing was intact. Vital signs were stable. He was afebrile. He was progressing with his physical therapy and it was felt he could be discharged home with home health services on 12/11/2017. For further review, please see chart. LAB AND X-RAY DATA: As per chart. DISCHARGE INSTRUCTIONS: The patient was discharged to home in satisfactory condition on 12/11/2017. DIET: Heart healthy. ACTIVITY: Weightbearing as tolerated left lower extremity. Follow TKA instruction sheets and special care instructions as noted. Follow up with Dr. Castro in 2 weeks. The patient to call for appointment if one has not been made for you. DISCHARGE MEDICATIONS: Acetaminophen 1000 mg p.o. q. 8 hours for 14 days, aspirin 81 mg p.o. b.i.d. for 28 days, oxycodone 5-10 mg p.o. q. 4 hours p.r.n., tramadol 50-100 mg p.o. q. 4 hours p.r.n., resume home meds as listed and stop taking ibuprofen.
--- NOTE | 2017-12-15 15:19 | OPERATIVE REPORT ---
DATE OF OPERATION: 12/09/2017 PREOPERATIVE DIAGNOSIS: Osteoarthritis, left knee. POSTOPERATIVE DIAGNOSIS: Osteoarthritis, left knee. PROCEDURE: Left total knee arthroplasty. SURGEON: Gamaliel Castro MD MODEL AND MOLD MAKER: Jose Benjamin PA-C ANESTHESIA: Spinal. COMPLICATIONS: None. IMPLANTS USED: Femoral size 6 left, tibia size 5, tibial poly 9, patella size 39. DISPOSITION: Recovery room, stable. OPERATION AND FINDINGS: Following induction of spinal anesthesia, the patient's left leg was prepped and draped in the usual sterile manner. Limb was exsanguinated with an Esmarch bandage and tourniquet was inflated to 350 mmHg. A longitudinal incision was made anteriorly. Subcutaneous tissue was sharply dissected. Electrocautery was used for hemostasis. Prepatellar bursa was incised and median parapatellar incision was performed. Patella was everted and the knee was flexed. Fat pad was removed to aid in visualization and the anterior and posterior cruciate ligaments were removed. The medial face of the tibia was cleared of soft tissue first with a Bovie and a Rubio elevator. This tissue was retracted posteriorly using a blunt Hohmann. A Jorge retractor was used to expose the synovium above on the anterior aspect of the femur and this was removed down to bone. The PSI guide was placed on the distal femur and two pins were placed anteriorly and kept in position and two additional pins were placed distally and removed. The distal femoral cutting block was placed in position and the distal femoral cut was used in the +0 setting. Next, the cutting block was removed and the femoral 6 block was placed in the distal end of the femur. Care was taken to ensure appropriate external rotation and feeler gauge was used to ensure no notching would occur. The femoral block was centered on the distal femur and in the medial and lateral direction and was fixed using two bone screws. The gold pins were then removed. The oscillating saw was used to create the bone cuts and the distal femoral cutting block was removed and the reciprocating saw was used to further trim the femoral cuts as well as a deep in the area for the trochlear groove. Next, posterior condyle remnants were removed. Following this, a meniscal clamp and knife were utilized to remove the anterior portion of both medial and lateral meniscus. The proximal tibia PSI guide was placed into position and the proximal tibial cutting guide was screwed into position. The extra medullary alignment guide was utilized to ensure appropriate alignment. The proximal tibia was cut and the proximal tibial cutting block was removed and this bone fragment was removed. The appropriate guide was used to perform the notch cut on the distal femur and a lamina head of music and a cochlear knife were utilized to finish both medial and lateral meniscectomies to remove any remnants of the posterior or anterior cruciate ligaments. Following this, the distal femoral component was impacted into position and blunt Pat was used to sublux the tibia anteriorly. The proximal tibia was sized and a 5 tibial tray was chosen as the size to be used. This was put into position and appropriate external rotation and a double check with extramedullary alignment guide was performed. The canal for the tibial stem was prepared first with a 17 mm drill and then the punch and a mallet and the trial tibial poly was placed. A 9 was chosen the size to be used. It was brought to extension and the patella was prepared with the patellar reamer. A 39 component was chosen the size to be used. The trial component was placed and knee was taken through a full range of motion and there was found to be no lateral subluxation of the tibia. No lateral release was required. The trials were all removed. The final components were obtained and assembled. Cement was mixed. The knee was thoroughly irrigated and the ortho mix was injected about the knee joint. The final components were cemented into position. After thoroughly suctioning and drying the bone ends, all excess cement was removed. The knee was held in extension while the cement hardened. The wound was irrigated and closed over a Hemovac drain. #1 Vicryl was used to close the extensor mechanism. Subcutaneous tissues closed using 0 Dexon. Skin was closed with aida. Sterile dressing of Adaptic, 4 x 4's, sterile Webril, and Hussain was applied. The patient tolerated the procedure well. Due to the complex nature of the procedure, the entire surgery was performed with the operational assistance of Jose Benjamin PA-C. The psychologist research assistant, under direct supervision, was involved in the actual performance of all aspects of the surgical procedure including hemostasis, tissue retraction and incision, instrument management, patient positioning, and wound closure. I attest to the content of the Intraoperative Record and any orders documented therein. Any exception s are noted below.
== END 2017-12-11 10:33 | disposition home health service (06) | DRG 470 ==
LOC: C.ACU 10:13 → C.3E 10:30 → ENRESERV 15:30
PROC: 0SRD0J9 Replacement of Left Knee Joint with Synthetic Substitute, Cemented, Open Approach (ICD-10-PCS; principal; 2017-12-09 12:45)
DX: M17.12 Unilateral primary osteoarthritis, left knee (principal); I10 Essential (primary) hypertension; E78.5 Hyperlipidemia, unspecified; G20 Parkinson's disease; E03.9 Hypothyroidism, unspecified; N40.0 Benign prostatic hyperplasia without lower urinary tract symptoms; Z96.651 Presence of right artificial knee joint; Z88.2 Allergy status to sulfonamides